=== PATIENT | male | born 1990 | race Caucasian/White ===

== ENCOUNTER 2020-05-04 12:47 | Outpatient (CLI) | payer OTHER, SELFPAY ==
--- NOTE | ~2020-05-04 | US_ITS ---
EXAMINATION: US breast LT limited HISTORY: Left chest wall lump and tenderness near the nipple. TECHNIQUE: Limited left breast ultrasound is performed. FINDINGS: There is no evidence of focal abnormal cystic or solid mass in the vicinity of the reported palpable abnormality of concern. Findings have sonographic features of mild gynecomastia. IMPRESSION: Gynecomastia with no suspicious sonographic mass identified. Further evaluation at this time should b e based on clinical assessment. Continued follow-up physical examination is recommended. BI-RADS Category 2: Benign finding(s). Reviewed, dictated and finalized at location A. [facility] IMPRESSION: Gynecomastia with no suspicious sonographic mass identified. Further evaluation at this time should be based on clinical assessment. Continued follow-up physi zabrina examination is recommended. BI-RADS Category 2: Benign finding(s).
== END 2020-05-04 12:48 | disposition home or self-care (01) ==
PROVIDERS: PCP Physician Assistant; Visit Provider Physician Assistant
DX: R22.2 Localized swelling, mass and lump, trunk (principal)
CPT/HCPCS: 76642

== ENCOUNTER 2021-11-08 15:36 | Emergency (ER) | payer OTHER, SELFPAY ==
[2021-11-08 15:42] VITALS: BP 140/87; PULSE 71; RESP 17; TEMP 36.1; O2SAT 100
--- NOTE | 2021-11-08 15:47 | ED.EAR ---
HPI - Ear Problem General Chief complaint: Ear Stated complaint: Lt Ear Irritation Time Seen by Provider: 11/08/21 15:47 Source: patient Mode of arrival: ambulatory Limitations: no limitations History of Present Illness HPI Narrative: 31-year-old male presents with complaint of hearing loss, feeling of impacted cerumen to bilateral ear canals. Reports that he needs to have ears irrigated every few months. Does not use any type of Q-tips due to history of cerumen impaction. No pain. All systems reviewed and negative except as noted above. Related Data Home Medications Medication Instructions Recorded Confirmed testosterone cypionate 200 mg/mL 200 mg IM ONCE 04/29/20 04/01/21 intramuscular kit vitamin B complex 1 tablet PO DAILY 04/29/20 04/01/21 tumeric 100 mg-nette 150 mg-olive cap PO 12/28/20 04/01/21 50 mg-oreg 150 mg-caprylate capsule Allergies Allergy/AdvReac Type Severity Reaction Status Date / Time NKDA Allergy Mild uknown Uncoded 11/08/21 15:50 Review of Systems Review of Systems: CONSTITUTIONAL: Denies fever, chills, or sweats. EYES: Denies visual changes, redness, or discharge. ENT: Denies rhinorrhea, congestion, sore throat. Reports hearing loss to bilateral ears with feeling of fullness. CARDIOVASCULAR: Denies chest pain, palpitations, or edema. RESPIRATORY: Denies cough or dyspnea. GASTROINTESTINAL: Denies abdominal pain, nausea, vomiting, or diarrhea. GENITOURINARY: Denies dysuria or hematuria. SKIN: Denies rash or itching. MUSCULOSKELETAL: Denies back pain, joint pain, or myalgia. NEUROLOGIC: Denies headache, numbness, or weakness. PSYCHIATRIC: Denies anxiety or depression. All other systems reviewed are negative, except as documented in HPI. [facility] Past Medical History Medical History ADHD Hypertension Visual loss Surgical History Surgical History Retinal detachment Tear of left acetabular labrum Family History Family History Father Diabetes mellitus Mother Hypertension HLD (hyperlipidemia) Grandparent Hypertension Cerebrovascular accident Heart disease Grandparent Hypertension Cerebrovascular accident Grandparent Breast cancer Grandparent Heart disease Dementia Social History Social History Smoking status: Never smoker Alcohol intake: current Substance use: current Substance use type: marijuana Comments Patient is aware of diagnosis, understands and agrees to treatment plan. Anticipatory guidance given. Patient agrees to follow-up as directed and is aware of reasons to seek care at the emergency department. Portions of this record may have been created with voice recognition software Exam Narrative: GENERAL: This is a well-nourished, well-developed patient, in no apparent distress. HEAD: normocephalic, atraumatic. EYES: PERRL. Sclera clear/white. Vision is grossly intact. EARS: External ears normal, bilateral canals impacted with allen-colored cerumen. After irrigated, TM intact. No signs of infection. NOSE: External nose NECK: Neck supple, non-tender without lymphadenopathy, masses or thyromegaly. CARDIOVASCULAR: Regular rate and rhythm without murmurs, gallops, or rubs. RESPIRATORY: Clear to auscultation. Breath sounds equal bilaterally. No wheezes, rales, or rhonchi. SKIN: warm, Dry, intact with no suspicious lesions or rash, good texture and turgor. NEURO: awake, alert, and oriented to person, place and time. There were no obvious focal neurologic abnormalities. EXTREMITIES: No joint tenderness, effusion, or edema noted. Course Course Emergency Course: Patient is aware of diagnosis, understands and agrees to treatment plan. Anticipatory guidance given. Patient agrees to f
== END 2021-11-08 15:55 | disposition home or self-care (01) ==
PROVIDERS: Emergency Provider Nurse Practitioner Family; PCP Physician Assistant
DX: H61.23 Impacted cerumen, bilateral (principal); I10 Essential (primary) hypertension
CPT/HCPCS: 69210; 99212; G0463

== ENCOUNTER 2023-08-06 09:17 | Outpatient (CLI) | payer OTHER, SELFPAY ==
[2023-08-14 18:43] VITALS: BMI 33.0
--- NOTE | 2023-08-14 18:43 | WPDHOMESLEEP ---
Sleep Study - Home Unattended Date of Study: 08/06/23 Ordering Provider: Santo Gifford PA-C Interpreting Provider: Ines Riley, DO Home Sleep Study Type: Watch PAT Height: 1.85 m Weight: 113.398 kg Body Mass Index: 33.0 Neck Circumference (inches): 16 [place]: 13 Reason for Sleep Study Daytime hypersomnia Sleep History The patient is a 33 year male that had a sleep study ordered by his primary care for evaluation of sleep apnea. The patient rarely awakens from sleep short of breath. He denies awakening at night with heartburn, belching or cough. He frequently snores and is occasionally loud enough that others complain. He denies having trouble sleeping when he has a cold. He occasionally wakes up gasping for air throughout the night. He frequently has breathing problems at night observed by himself or others. He frequently sweats excessively at night. He denies having heart palpitations or irregular heartbeats during the night. He occasionally falls asleep during the day. He rarely falls asleep while driving. He denies sleep paralysis and cataplexy. He frequently has trouble at school or work due to sleepiness. He occasionally experiences vivid dreamlike scenes upon awakening or falling asleep. He denies feeling afraid of going to sleep. He occasionally has nightmares. He rarely remembers his dreams. He frequently has thoughts racing through his mind. He rarely feels sad, depressed or anxious. He denies having muscular tension. He occasionally notices parts of his body jerk. He denies kicking during the night. He denies having crawling and aching feelings in his legs and denies having leg pain during the night. He frequently grinds his teeth during sleep but never awakens with morning jaw pain. He is rarely bothered by pain during the day but never awakened by pain during the night. He frequently wakes up feeling stiff in the morning. He rarely wakes up with sore or achy muscles. He occasionally wakes up with pain in the neck, spine other joints. He goes to bed at 10:30 p.m. on weekdays and between 11:30 p.m. to 12:00 a.m. on the weekends. It takes him 20 minutes to fall asleep. He wakes up about 5 times throughout the night to adjust position or urinate and is able to fall back asleep within 10 minutes. He wakes up at 8:30 a.m. on weekdays and at 10:00 a.m. on the weekends. He typically gets 8 hours of sleep per night. He will stay in bed for up to 15 minutes after waking up in the morning. He currently lives with his . He denies consuming any caffeinated beverages within 2 hours of bedtime. He denies engaging in physical exercise before bedtime. He will watch television before falling asleep. He denies taking naps in the afternoon or the evening. He consumes 200-400 mg of caffeine per day. He denies tobacco and alcohol use. He uses an unspecified recreational drug. [facility], [facility] Past Medical History Medical History ADHD Hypertension Visual loss Surgical History Surgical History Retinal detachment Tear of left acetabular labrum Family History Family History Father Diabetes mellitus Mother Hypertension HLD (hyperlipidemia) Grandparent Hypertension Cerebrovascular accident Heart disease Grandparent Hypertension Cerebrovascular accident Grandparent Breast cancer Grandparent Heart disease Dementia Social History Social History Smoking status: Never smoker Alcohol intake: current Substance use: current Substance use type: marijuana Lack of Transportation: No Lack of Food: Never True Current Housing: I Have Housing Concerned About Future Housing: No Difficulty Paying Gas/Electric Bills: No Difficulty
== END 2023-08-08 07:30 | disposition home or self-care (01) ==
PROVIDERS: PCP Physician Assistant; Visit Provider Physician Assistant
DX: G47.10 Hypersomnia, unspecified (principal)
CPT/HCPCS: 95800